=== PATIENT | female | born 1935 | race African-American/Black ===

== ENCOUNTER 2018-07-25 08:41 | Observation (INO) | payer MEDICARE, BC ==
[2018-07-25 14:57] VITALS: BMI 20.4
[2018-07-25] MEDS ORDERED: Acetaminophen 325 MG TAB PO PRN ×2 (16:00→16:35)
[2018-07-25] MEDS ORDERED: hydrALAZINE 20 MG/ML VIAL SLOW IVP PRN (16:35)
[2018-07-25] MEDS ORDERED: Benzonatate 100 MG CAP PO PRN (16:35)
[2018-07-25] MEDS ORDERED: HumaLOG 300 UNITS/3 ML VIAL SC PRN ×2 (16:35)
[2018-07-25] MEDS ORDERED: Dextrose 50% Abboject 50 ML SYRINGE SLOW IVP PRN (16:35)
[2018-07-25] MEDS ORDERED: Dextrose 5% in Water 1,000 ML IV PRN (16:35)
[2018-07-25] MEDS ORDERED: Nitroglycerin 0.4 MG TAB (25 Tab Bottle) SL PRN (16:35)
[2018-07-25] MEDS ORDERED: Sodium Chloride 0.9% 10 ML ONE (16:56)
[2018-07-25] MEDS: cefTRIAXone\\ROCEPHIN 1 GM in Sodium Chloride 0.9% 100 ML IVPB SCH (17:02)
[2018-07-25] MEDS: Azithromycin 500 MG in Sodium Chloride 0.9% 250 ML 250 ML IVPB SCH (17:46)
[2018-07-25] MEDS: Atorvastatin Calcium 10 MG TAB PO SCH (21:08)
[2018-07-25] MEDS: Carvedilol 25 MG TAB PO SCH (21:08)
[2018-07-25] MEDS: Lisinopril 20 MG TAB PO SCH (21:08)
--- NOTE | 2018-07-25 22:43 | HP ---
PRIMARY CARE PHYSICIAN: Dr. Graham. CHIEF COMPLAINT: Palpitations, cough, and congestion. HISTORY OF PRESENT ILLNESS: Ms. Crandall is a very pleasant 83-year-old female who has a history of nonischemic cardiomyopathy, diabetes mellitus, and hypertension. She was in her usual state of health until a couple of days ago when she started getting cough and congestion. She says that overnight it got extremely worse. She says that she was not able to sleep in the bed, but had to sleep in a recliner primarily due to coughing and was up most of the night and when she got up this morning, her heart was pounding and she felt a bit lightheaded. She denies any chest pain, however, and due to the symptoms, she came to the emergency room in [facility], where they evaluated her and noticed that her BNP was a bit elevated and her chest x-ray reportedly had some signs of early congestive heart failure and she was transferred here for further evaluation. The patient says that she sees Dr. Echavarria on a regular basis. She says that he does echoes fairly often. She has a defibrillator in place and had a recent change of battery early last year. She is not sure when her last echo however was. She also denies noticing any lower extremity edema. She denies any PND or amaury orthopnea and says in fact, she thought that she may have a bronchitis as other people have been sick in her family and also in the general area where she lives. Otherwise, no nausea, no vomiting, no fevers, no chills. REVIEW OF SYSTEMS: All systems were reviewed and are negative except for that mentioned in the history of present illness. PAST MEDICAL HISTORY: Significant for nonischemic cardiomyopathy, diabetes mellitus type 2, hypertension, hyperlipidemia, and breast cancer. PAST SURGICAL HISTORY: She had a left mastectomy in 2009, cardiac catheterization, appendectomy. She had an AICD placed in 2010 and then a battery change in 11/23/2017. ALLERGIES: TO TRAMADOL, TYLENOL 3, WHICH CAUSES HER TO BE NAUSEATED WELL METHOCARBAMOL. SOCIAL HISTORY: She is single. She lives with her sister. She is a nonsmoker. She says she used to drink, but she has quit years ago. She would like to be do not attempt resuscitation. She says that her nephews, who are her sister's sons, Gale Pichardo, and Thom Beasley are her surrogate decision makers for her medical conditions. FAMILY HISTORY: Significant for heart disease, diabetes mellitus in her brother and cancer and end-stage renal disease in her sister. CURRENT MEDICATIONS: Include; 1. Spironolactone 12.5 mg daily. 2. Zocor 20 mg at bedtime. 3. Nitrostat 0.4 q.5 minutes p.r.n. 4. Loratadine 10 mg daily. 5. Lisinopril 20 mg twice a day. 6. Fish oil 1000 mg daily. 7. Carvedilol 25 mg twice a day. 8. Aspirin 81 mg daily. PHYSICAL EXAMINATION: GENERAL: She is alert and oriented. She appears to be in no acute distress. VITAL SIGNS: Her vital signs are stable. Blood pressure was 123/72, heart rate 82, respiratory rate of 20, temperature was 98.2, and O2 saturation is 96% on room air. HEENT: Her pupils are equal, round, and reactive. Extraocular muscles are intact. Her sclerae anicteric. Throat, there is no erythema, no exudates. NECK: No adenopathy. No bruits. LUNGS: She has bilateral wheezing, which is worse on the right mid lung field. She had some rales at the bases as well. There was no rhonchi. CARDIOVASCULAR: She had a normal S1 and S2. No S3 or S4. No murmurs, clicks, or rubs. ABDOMEN: Obese. It is soft. It is nontender and nondistended. Positive for bowel sounds. There is no rebound, no guarding. EXTREMITIES: She has trace pedal edema. NEURO: Neurologically, the exam is nonfocal. LABORATORY DATA: Labs were taken from the records from the [facility] and include a sodium of 132, potassium 4.0, chloride is 102, CO2 is 21, BUN of 13, creatinine 1.02, glucose is 207. CBC, the white blood cell count 8.6, hemoglobin 11.8, hematocrit is 34.9, and platelet count is 194. The BNP was 456. D-dimer 0.59. Troponin less than 0.010. DIAGNOSTIC STUDIES: EKG, this is by my reading, was sinus, rate was 74. There is evidence of left axis deviation and some nonspecific ST wave changes. Chest x-ray was reported as having borderline cardiomegaly, defibrillator in place. Leads are in place and borderline signs of failure. ASSESSMENT AND PLAN: This is an 83-year-old female, who presents with cough and palpitations, also with exam with both wheezing and rales. I suspect she has a combination of an acute bronchitis along with some mild decompensation in heart failure. The largest aspect of which I think is likely from acute bronchitis, therefore, for; 1. Acute bronchitis. We will place her on Rocephin as well as azithromycin and DuoNebs as needed. 2. [id number] systolic heart failure. She has already been given a dose of Lasix in the ER. We may give her another dose of Lasix today. Consult Cardiology for further recommendations. We will continue her usual home medications for this. We will hold off on an echocardiogram given that she sees Dr. Echavarria, regularly and likely this has been done in the recent past. 3. Diabetes mellitus. She says this is currently diet controlled. We will place her on a sliding scale. 4. Hypertension. Currently, her blood pressure is controlled. We will continue her usual home medications as well as p.r.n., as needed. Job ID: [id number]
[2018-07-26 06:15] LABS: #Lymphocytes 0.8 thou/uL (1.20-3.40); #Monocytes 0.5 thou/uL (0.11-0.59); #Neutrophils 6.2 thou/uL (1.40-6.50); %Eosinophils 0.1 % (0.0-10.0); %Lymphocytes 11.1 % (21.0-51.0); %Monocytes 5.9 % (0.0-10.0); %Neutrophils 82.8 % (42.0-75.0); Hemoglobin 11.7 g/dL (12.0-16.0); Mean Corpuscular HGB CONC 33.9 g/dL (32.0-36.0); Mean Corpuscular Hemoglobin 31.6 pg (27.0-31.0); Mean Corpuscular Volume 93.2 fL (78.0-98.0); Mean Platelet Volume 7.8 fL (7.4-10.4); Platelet Count 167 thou/uL (130-400); RBC Distribution Width 10.9 % (11.5-14.5); Red Blood Cell (RBC) Count 3.69 mill/uL (4.20-5.40); White Blood Cell (WBC) Count 7.5 thou/uL (4.8-10.8)
[2018-07-26 06:34] LABS: Anion Gap 13 mmol/L (10-20); BUN (Urea Nitrogen) 20 mg/dL (9.8-20.1); Calc. Creatinine Clearance 35 mL/min (70-130); Calcium 9.2 mg/dL (7.8-10.44); Carbon Dioxide 26 mmol/L (23-31); Chloride 98 mmol/L (98-107); Estimated GFR-MDRD 56; Glucose 155 mg/dL (83-110); Potassium 3.8 mmol/L (3.5-5.1); Sodium 133 mmol/L (136-145)
[2018-07-26] MEDS: Enoxaparin Sodium 40 MG/0.4 ML SYRINGE SC SCH (09:15)
[2018-07-26] MEDS: Carvedilol 25 MG TAB PO SCH ×2 (09:15→20:49)
[2018-07-26] MEDS: Fish Oil 1,000 MG CAP PO SCH (09:15)
[2018-07-26] MEDS: Loratadine 10 MG TAB PO SCH (09:15)
[2018-07-26] MEDS: Spironolactone 25 MG TAB PO SCH (09:15)
[2018-07-26] MEDS: Lisinopril 20 MG TAB PO SCH ×2 (09:15→20:49)
[2018-07-26] MEDS: Aspirin 81 mg Enteric Coated Tablet PO SCH (09:15)
--- NOTE | 2018-07-26 16:37 | PDOC.PN ---
- Subjective Encounter Start Date: 07/26/18 Encounter Start Time: 16:36 Mr. Crandall was seen today in follow-up of bronchitis. She says she is breathing better today. She is still wheezing, and has a cough. - Objective Resuscitation Status - Order Detail: 07/25/18 16:28 Resuscitation Status Routine Resuscitation Status: DNAR: NO Resuscitation Discussed with: Discussed with the patient MAR Reviewed: Yes Vital Signs & Weight: Vital Signs (12 hours) Temp Pulse Resp BP BP Pulse Ox 07/26/18 12:00 99.2 F 80 18 92/54 L 93 L 07/26/18 11:44 85 16 98 07/26/18 09:15 110/56 L 07/26/18 08:20 98.1 F 93 18 110/56 L 95 07/26/18 07:09 99 07/26/18 07:08 89 14 99 Weight Admit Weight 126 lb 6.4 oz Weight 126 lb 6.4 oz I&O: 07/25/18 07/26/18 07/27/18 06:59 06:59 06:59 Intake Total 351 Balance 351 Result Diagrams: 07/26/18 05:32 07/26/18 05:32 Additional Labs: Accuchecks 07/26/18 07/26/18 11:06 05:56 POC Glucose 193 H 159 H Phys Exam - Physical Examination + wheezing bilaterally Cardiovascular: RRR, no significant murmur, no rub Gastrointestinal: soft, non-tender, no distention, positive bowel sounds Musculoskeletal: pulses present, edema present trace pedal edema bilaterally Dx/Plan (1) Acute bronchitis Code(s): J20.9 - ACUTE BRONCHITIS, UNSPECIFIED Status: Acute (2) Chronic systolic heart failure Code(s): I50.22 - CHRONIC SYSTOLIC (CONGESTIVE) HEART FAILURE Status: Acute (3) Diabetes mellitus type 2 in nonobese Code(s): E11.9 - TYPE 2 DIABETES MELLITUS WITHOUT COMPLICATIONS Status: Chronic (4) Hypertension Code(s): I10 - ESSENTIAL (PRIMARY) HYPERTENSION Status: Chronic - Plan * Acute Bronchitis- slightly improved- continue AZithromycin and Rocephin, and Duonebs * Acute on chronic diastolic heart failure- Echo has been ordered. She appears to be clinically euvolemic- await further recommendations from Cardiology * HTN- blood pressure is low normal * DM- blood glucose is stable * Hopefully home tomorrow.
[2018-07-26] MEDS: cefTRIAXone\\ROCEPHIN 1 GM in Sodium Chloride 0.9% 100 ML IVPB SCH (17:06)
[2018-07-26] MEDS: Azithromycin 500 MG in Sodium Chloride 0.9% 250 ML 250 ML IVPB SCH (18:12)
[2018-07-26] MEDS: Atorvastatin Calcium 10 MG TAB PO SCH (20:49)
--- NOTE | 2018-07-26 22:37 | CON ---
DATE OF CONSULTATION: PRIMARY CARE DOCTOR: Dr. Graham. PRIMARY ENAMEL DIPPER: Dr. Echavarria. REFERRING DOCTOR: Dr. Baker. REASON FOR CARDIOLOGY CONSULT: Congestive heart failure exacerbation. HISTORY OF PRESENT ILLNESS: Ms. Crandall is a very pleasant 83-year-old female with a significant history of nonischemic cardiomyopathy with AICD placement, hypertension, diabetes, hyperlipidemia, and left breast cancer with status post mastectomy. The patient started having worsen of the cough for the last few days. Yesterday, she noticed cough is getting worse and she is having more congested. The patient was taken to the emergency department by the patient's family member for further evaluation and treatment. In the ER at [place], the patient's chest x-ray shows some sign of early congestive heart failure. The patient was transferred to [facility] yesterday. Prior to these events, the patient denied any cardiac complaints except congestion in her chest. During the Cardiology consult, the patient denied any chest pain, heaviness, tightness, discomfort in her chest, fluttering or palpitation, dizziness, lightheadedness, or any other cardiac complaints. She has walked around the unit today without any cardiac complaints. The patient has cardiac catheterization in 08/2009 with 20% of stenosis in left circumflex arteries and right coronary arteries. The last echocardiogram was done in 01/2017 with EF 20% to 25%, moderate left ventricular dilation, mild left atrial enlargement, [id number] mitral valve regurgitation, and mild tricuspid regurgitation. PAST MEDICAL HISTORY: 1. Known ischemic cardiomyopathy. 2. Chronic systolic heart failure. 3. Hypertension. 4. Hyperlipidemia. 5. Left breast cancer. 6. History of diabetes type 2; however, after she lost weight, she is off any blood glucose medication. PAST SURGICAL HISTORY: 1. Left mastectomy in 2009. 2. Appendectomy. 3. AICD placement in 2010 and a generator change out in 2017. FAMILY HISTORY: She has significant family history of hypertension in her family. The patient's older brother has history of diabetes. SOCIAL HISTORY: She is single. She is living with her sister. She denies smoking any tobacco, EtOH, or illicit drug abuse. She drinks one cup of coffee a day and she drinks one can of Coke a day. She does not do any exercise. ALLERGIES: SHE IS ALLERGIC TO TRAMADOL AND TYLENOL NO.3. REVIEW OF SYSTEM: Twelve-point review of systems is negative unless otherwise mentioned in HPI. CURRENT MEDICATIONS: 1. Fish oil 1000 mg once a day. 2. Claritin 10 mg once a day. 3. Aspirin 81 mg once a day. 4. Spironolactone 25 mg half tablet to one tablet a day. 5. Zocor 20 mg once a day. 6. Nitroglycerin 0.4 mg sublingual as needed. 7. Lisinopril 20 mg twice a day. 8. Carvedilol 25 mg twice a day. PHYSICAL EXAMINATION: VITAL SIGNS: Blood pressure 92/54, pulse 86 and sinus rhythm, temperature 99.2, respiratory rate 18, and O2 saturation 98% on room air. GENERAL: The patient alert and oriented x4, not in acute distress. HEENT: Head, normocephalic and atraumatic. Eyes, extraocular muscle movement intact. ENT and mouth, oral and nasal mucosa are moist without lesion. NECK: Supple. Normal range of motion. No JVD. RESPIRATORY: Coarse in bilateral lungs, but no wheezing noted. CARDIOVASCULAR: Regular rate and rhythm. Normal S1 and S2. There is no S3 or S4. There are significant murmur to the left apical site. Carotid pulses are present. No bruit or thrill noted. 2+ pulses in upper and lower extremities. No edema. ABDOMEN: Soft and nontender on the mass to palpate. Bowel sounds are present. SKIN: Warm and dry. No lesions, erythema, or rash noted. MUSCULOSKELETAL: The patient is able to move all extremities without any difficulties. NEUROLOGIC: The patient is alert and oriented x4, nonfocal. PSYCHIATRIC: The patient's mood is appropriate. LABORATORY DATA: WBC 7.5, hemoglobin 11.7, hematocrit 30.14, and platelet 167. BNP is 456. Sodium 133, potassium 3.8, BUN 20, creatinine 1.12, and glucose 155. Telemetry records showed that the patient is in sinus rhythm. ASSESSMENT AND PLAN: 1. Acute on chronic systolic heart failure. Her condition is stable at this moment with room air after she received the Lasix in the ER. The patient on carvedilol 25 mg twice a day, lisinopril, and also spironolactone. Echocardiogram was ordered and the result is pending at this moment. 2. Acute bronchitis which is managed by primary care doctor. She is on IV antibiotic at this moment with Davidb as needed. 3. Hypertension. The patient's blood pressure is stable with current medication. 4. Diabetes type 2. The patient on before meals and at night blood glucose check with sliding scale insulin. 5. History of moderate and severe mitral valve regurgitation. Echocardiogram was ordered and again results are pending at this moment. Thank you for allowing the Cardiology Service to participate in the care of this patient. We will follow along the patient's care team and make further recommendation as appropriate. Job ID: [id number]
--- NOTE | 2018-07-27 00:37 | CON ---
DATE OF CONSULTATION: 07/26/2018 INDICATION FOR CONSULTATION: An 83-year-old female with history of nonischemic cardiomyopathy, who has had an increasing cough recently. She denied any significant increased shortness of breath, but does appear to be slightly short of breath at times during the evaluation. The patient mainly complained of a cough and feeling lightheaded. She went to the emergency room. Chest x-ray showed some congestion, I believe she had some small bilateral effusions. She was then transferred to our facility for further evaluation and treatment. She had an echocardiogram I believe in 2017, which was her last echocardiogram. We will repeat this to see whether or not her ejection fraction has improved. She also has a defibrillator. She has been followed on a routine basis with defibrillator which was changed out last year, and apparently has been doing quite well. She denied any other complaints or problems. She mainly was complaining of some mild edema as well as the coughing, and was told that she had congestive heart failure and presented to the hospital. PAST MEDICAL HISTORY: Significant for the AICD implant, nonischemic cardiomyopathy, history of hypertension, hyperlipidemia, diabetes. She has had a history of breast cancer in the past. She has had a mastectomy. She has had change out of the AICD in 2018. Otherwise, for her past medical history, social history,family history, allergies, review of systems, please refer the notes dictated by my nurse practitioner, Jelena Herrera. PHYSICAL EXAMINATION: GENERAL: Reveals an elderly female, very pleasant. There were no acute problems at this time. VITAL SIGNS: Blood pressure 92/54, heart rate is 80 and shows a sinus rhythm, respiratory rate 16, O2 saturation 93%, temperature is 99.2. HEENT: Shows head to be normocephalic and atraumatic. Carotid pulses are present without any bruits. CHEST: Has bilateral basilar rales. She has coarse rhonchi noted in the right and left base, more so on the left than the right. CARDIOVASCULAR: Reveals a regular rhythm at this time. She has an S1 and S2. I did not hear any significant S3 or S4. I did not hear any significant murmurs, heaves, thrills, bruits or rubs. ABDOMEN: Soft, nontender. Positive bowel sounds are present. EXTREMITIES: No clubbing or cyanosis. She had minimal edema. NEUROLOGIC: She appears to be intact. LABORATORY DATA: Shows evidence of blood sugar of 155, creatinine 1.12, sodium 133, potassium 3.8. WBC 7.5, hemoglobin 11.7. There were no other labs available unless that were from the emergency room in [place]. I do not think there are any other significant abnormalities noted at this time. IMPRESSION: Probably bronchitis with some congestive heart failure symptoms superimposed. She is on antibiotics. We will continue these antibiotics. Would also give her a low dose of diuretics to see if she improves, careful attention to her sodium. Her sodium was 132 when she was evaluated in [place]. Her troponin I was unremarkable. We will continue to follow the patient with you, but most likely be discharged home in the next 24 to 48 hours. We will obtain an echocardiogram for evaluation of left ventricular systolic function. Job ID: [id number] [facility]
[2018-07-27] MEDS: Lisinopril 20 MG TAB PO SCH (08:43)
[2018-07-27] MEDS: Spironolactone 25 MG TAB PO SCH (08:43)
[2018-07-27] MEDS: Carvedilol 25 MG TAB PO SCH (08:43)
[2018-07-27] MEDS: Enoxaparin Sodium 40 MG/0.4 ML SYRINGE SC SCH (08:43)
[2018-07-27] MEDS: Fish Oil 1,000 MG CAP PO SCH (08:43)
[2018-07-27] MEDS: Aspirin 81 mg Enteric Coated Tablet PO SCH (08:43)
[2018-07-27] MEDS: Loratadine 10 MG TAB PO SCH (08:43)
[2018-07-27 11:01] LABS: Anion Gap 13 mmol/L (10-20); BUN (Urea Nitrogen) 31 mg/dL (9.8-20.1); Calc. Creatinine Clearance 30 mL/min (70-130); Calcium 8.8 mg/dL (7.8-10.44); Carbon Dioxide 24 mmol/L (23-31); Chloride 99 mmol/L (98-107); Estimated GFR-MDRD 47; Glucose 186 mg/dL (83-110); Potassium 3.3 mmol/L (3.5-5.1); Sodium 133 mmol/L (136-145)
--- NOTE | 2018-07-27 12:24 | PDOC.PN ---
- Subjective Encounter Start Date: 07/27/18 Encounter Start Time: 12:22 Ms. Crandall was seen today in follow-up of bronchitis and CHF. She is a bit better today as well, she is less short of breath. She says the cough has improved. - Objective Resuscitation Status - Order Detail: 07/25/18 16:28 Resuscitation Status Routine Resuscitation Status: DNAR: NO Resuscitation Discussed with: Discussed with the patient MAR Reviewed: Yes Vital Signs & Weight: Vital Signs (12 hours) Temp Pulse Resp BP BP Pulse Ox 07/27/18 08:43 124/60 07/27/18 08:30 98.1 F 82 16 124/60 96 07/27/18 06:21 93 L 07/27/18 06:18 83 20 93 L 07/27/18 04:00 98.1 F 83 14 119/63 96 Weight Admit Weight 126 lb 6.4 oz Weight 126 lb 6.4 oz I&O: 07/26/18 07/27/18 07/28/18 06:59 06:59 06:59 Intake Total 351 240 Balance 351 240 Result Diagrams: 07/26/18 05:32 07/27/18 10:29 Additional Labs: Accuchecks 07/27/18 07/27/18 07/26/18 11:37 05:42 21:01 POC Glucose 179 H 108 243 H 07/26/18 16:54 POC Glucose 145 H Phys Exam - Physical Examination HEENT: PERRLA Respiratory: no rales, no rhonchi, wheezing present Cardiovascular: RRR, no significant murmur, no rub Gastrointestinal: soft, non-tender, no distention, positive bowel sounds Musculoskeletal: no edema, pulses present Dx/Plan (1) Acute bronchitis Code(s): J20.9 - ACUTE BRONCHITIS, UNSPECIFIED Status: Acute (2) Chronic systolic heart failure Code(s): I50.22 - CHRONIC SYSTOLIC (CONGESTIVE) HEART FAILURE Status: Acute (3) Diabetes mellitus type 2 in nonobese Code(s): E11.9 - TYPE 2 DIABETES MELLITUS WITHOUT COMPLICATIONS Status: Chronic (4) Hypertension Code(s): I10 - ESSENTIAL (PRIMARY) HYPERTENSION Status: Chronic - Plan * Acute Bronchitis- improved * Acute on chronic systolic heart failure- improved clinically after Lasix * HTN- blood pressure is stable * DM- blood glucose is stable.
[2018-07-27 15:59] VITALS: BP 127/62; TEMP 98
[2018-07-27] MEDS: cefTRIAXone\\ROCEPHIN 1 GM in Sodium Chloride 0.9% 100 ML IVPB SCH (16:10)
[2018-07-27] MEDS: Azithromycin 500 MG in Sodium Chloride 0.9% 250 ML 250 ML IVPB SCH (18:10)
--- NOTE | 2018-07-27 18:23 | PDOC.CTH ---
Cardiology Progress Note - Subjective The pt seen and examined. No overnight events. No cardiac complaints. She has much less coughing today per the pt and family. - Objective Vital Signs Temp Pulse Resp BP BP Pulse Ox 07/27/18 15:58 98.0 F 80 16 127/62 95 07/27/18 13:49 80 24 H 07/27/18 08:43 124/60 07/27/18 08:30 98.1 F 82 16 124/60 96 Admit Weight 126 lb 6.4 oz Weight 126 lb 6.4 oz 07/26/18 07/27/18 07/28/18 06:59 06:59 06:59 Intake Total 351 240 Balance 351 240 - Physical Examination General/Neuro: alert & oriented x3 Neck: no JVD present Lungs: CTA (diminished at bases) Heart: RRR Abdomen: soft Extremities: other: (No edema) - Telemetry Telemetry Rhythm: SR - Labs Result Diagrams: 07/26/18 05:32 07/27/18 10:29 - Assessment/Plan 1. Acute on chronic systolic HF - stable and slightly improved. 2. Acute bronchitis - less cough; on IV abx 3. HTN - stable 4. Hx of AICD placement 2/2 non-ischemic CMY - stable MAR reviewed * Echo on 07/27/2018 showed EF 25-30%(20-25% in 01/2017) with mild MR (mod- severe MR in 01/2017) * From Cardiac standpoint, the pt is stable to d/c home. The pt will f/u with Dr Echavarria's office within 2 wks. Review of Systems - Review of Systems Constitutional: reports: no symptoms reported EENTM: reports: no symptoms reported Respiratory: reports: no symptoms reported Cardiac (ROS): reports: no symptoms reported ABD/GI: reports: no symptoms reported : reports: no symptoms reported Musculoskeletal: reports: no symptoms reported
--- NOTE | 2018-07-29 13:48 | DIS ---
DATE OF ADMISSION: 07/25/2018 DATE OF DISCHARGE: 07/27/2018 PRIMARY CARE PHYSICIAN: Dr. Graham. DISCHARGE DISPOSITION: Home. PRIMARY DISCHARGE DIAGNOSES: 1. Acute bronchitis. 2. Acute on chronic systolic heart failure. 3. Nonischemic cardiomyopathy. 4. Diabetes mellitus type 2. 5. Hypertension. 6. Dyslipidemia. 7. Breast cancer. DISCHARGE MEDICATIONS: Include; 1. Spironolactone 12.5 mg daily. 2. Zocor 20 mg at bedtime. 3. Nitrostat 0.4 sublingual p.r.n. 4. Claritin 10 mg daily. 5. Lisinopril 20 mg twice a day. 6. Fish oil 1000 mg daily. 7. Carvedilol 25 mg twice daily. 8. Aspirin 81 mg a day. PROCEDURES DONE: During the admission, the patient had an echocardiogram which demonstrated an ejection fraction of 25% to 30%. There was normal right ventricular size and function. The pacer wires were visualized in the right ventricle as well as AICD leads were visualized in the right atrial cavity. CODE STATUS: Do not resuscitate. ALLERGIES: 1. CODEINE. 2. METHOCARBAMOL. 3. TRAMADOL. HOSPITAL COURSE: Ms. Crandall is a pleasant 83-year-old female, who was admitted to the hospital after experiencing some shortness of breath, coughing, and congestion. She had wheezing bilaterally and chest x-ray was essentially clear. She was admitted for a bronchitis episode and likely some mild heart failure and volume overload as well. She was placed on IV antibiotics and DuoNebs as well as given IV Lasix. Her spinning frame changer was consulted as well. Echocardiogram was performed. She improved over the next few days with therapy and was able to be discharged home essentially on the same medications and she is to have follow up with her primary care physician in 1 to 2 weeks and also with her spinning frame changer, Dr. Echavarria, in approximately 2 weeks as well. Job ID: [id number]
== END 2018-07-27 20:10 | disposition home or self-care (01) ==
LOC: 2NO 12:59 → INTOOBSV 12:59
PROVIDERS: ADMIT Internal Medicine; ATTEND Internal Medicine
DX: J20.9 Acute bronchitis, unspecified (principal); I11.0 Hypertensive heart disease with heart failure; I50.23 Acute on chronic systolic (congestive) heart failure; I42.0 Dilated cardiomyopathy; I34.0 Nonrheumatic mitral (valve) insufficiency; E11.9 Type 2 diabetes mellitus without complications; E78.5 Hyperlipidemia, unspecified; E66.9 Obesity, unspecified; Z68.20 Body mass index [BMI] 20.0-20.9, adult; Z85.3 Personal history of malignant neoplasm of breast; Z90.12 Acquired absence of left breast and nipple; Z90.49 Acquired absence of other specified parts of digestive tract; Z95.810 Presence of automatic (implantable) cardiac defibrillator; Z88.5 Allergy status to narcotic agent; Z88.8 Allergy status to other drugs, medicaments and biological substances; Z79.82 Long term (current) use of aspirin; Z79.899 Other long term (current) drug therapy
CPT/HCPCS: 80048 ×2; 82962 ×2; 85025; 93306; 94640 ×3; 94760 ×3; 96365; 96366 ×2; 96367; 96372 ×2; 96376 ×2; 97139 ×2; G0378 ×4; 36415; 36416; J0456; J0696; J1650; J7050; J7620

== ENCOUNTER 2019-04-28 13:38 | Inpatient (IN) | payer MEDICARE, BC ==
[2019-04-28] MEDS: Ferrous Sulfate 325 MG TAB PO SCH (17:02)
[2019-04-28] MEDS: Sotalol HCl 80 MG TAB PO SCH (17:24)
[2019-04-28] MEDS: Apixaban 2.5 MG TAB PO SCH (21:31)
[2019-04-28] MEDS: Carvedilol 6.25 MG TAB PO SCH (21:31)
[2019-04-28] MEDS: Atorvastatin Calcium 10 MG TAB PO SCH (21:32)
[2019-04-29] MEDS: Sotalol HCl 80 MG TAB PO SCH ×2 (06:00→20:21)
[2019-04-29] MEDS: Apixaban 2.5 MG TAB PO SCH ×2 (09:36→20:21)
[2019-04-29] MEDS: Lisinopril 20 MG TAB PO SCH (09:36)
[2019-04-29] MEDS: Carvedilol 6.25 MG TAB PO SCH ×2 (09:36→20:21)
[2019-04-29] MEDS: Spironolactone 25 MG TAB PO SCH (09:37)
[2019-04-29] MEDS: Loratadine 10 MG TAB PO SCH (09:37)
--- NOTE | 2019-04-29 11:05 | PDOC.CPN ---
- Subjective Date: 04/29/19 Time: 08:00 Interval history: admitted for sotalol loading. Feels well. No concerns or complaints overnight. - Review of Systems General: denies: fever/chills, weight/appetite/sleep changes, night sweats, fatigue Respiratory: denies: cough, congestion, shortness of breath, exercise intolerance Cardiovascular: denies: chest pain, palpitation, edema, paroxysmal nocturnal dyspnea, orthopnea Gastrointestinal: denies: nausea, vomiting, diarrhea, constipation, abd pain, GI bleeding Musculoskeletal: denies: pain, tenderness, stiffness, swelling, arthritis/ arthralgias - Objective Allergies/Adverse Reactions: Allergies Allergy/AdvReac Type Severity Reaction Status Date / Time codeine Allergy Verified 07/25/18 16:05 [From Tylenol-Codeine #3] methocarbamol Allergy Verified 07/25/18 16:05 tramadol Allergy Verified 07/25/18 16:05 Visit Medications: Current Medications Apixaban (Eliquis) 2.5 mg PO BID [facility] Last Admin: 04/29/19 09:36 Dose: 2.5 mg Atorvastatin Calcium (Lipitor) 10 mg PO HS [facility] Last Admin: 04/28/19 21:32 Dose: 10 mg Carvedilol (Coreg) 6.25 mg PO BID [facility] Last Admin: 04/29/19 09:36 Dose: 6.25 mg Ferrous Sulfate (Feosol) 325 mg PO QD [facility] Last Admin: 04/28/19 17:02 Dose: Not Given Lisinopril (Zestril) 20 mg PO DAILY [facility] Last Admin: 04/29/19 09:36 Dose: 20 mg Loratadine (Claritin) 10 mg PO DAILY [facility] Last Admin: 04/29/19 09:37 Dose: 10 mg Sotalol HCl (Betapace) 80 mg PO Q12HR [facility] Spironolactone (Aldactone) 12.5 mg PO QAM[facility] Last Admin: 04/29/19 09:37 Dose: 12.5 mg Vital Signs & Weight: Vital Signs Temp Pulse Resp BP BP Pulse Ox 04/29/19 09:36 120/58 L 04/29/19 08:16 97.9 F 62 16 120/58 L 99 04/29/19 08:00 99 04/29/19 06:00 71 111/60 04/29/19 03:25 97.7 F 64 14 120/60 98 Weight 134 lb 1.6 oz - Physical Exam General: alert & oriented x3 Cardiac: regular rate and rhythm, regular rate Lungs: clear to auscultation, normal breath sounds Neuro: grossly intact, no lateralizing findings Abdomen: unremarkable, active bowel sounds Extremities: no edema Skin: clear - EKG Interpretation Status: report reviewed by me EKG Method: 12 Lead EKG: other (SR, QT prolongation ~500msec (50msec increase from admission)) - Telemetry Sinus rhythms and dysrhythmias: sinus rhythm - Assessment/Plan Assessment/Plan: 1. Atrial fibrillation -QTc prolongation on sotalol 120mg PO BID. reducing dose to 80mg PO BID. Continue EKG 2-3 hrs post every dose of sotalol. - COntinue eliquis for OAC
[2019-04-29 12:26] VITALS: BMI 21.6
[2019-04-29] MEDS: Ferrous Sulfate 325 MG TAB PO SCH (15:11)
[2019-04-29] MEDS: Atorvastatin Calcium 10 MG TAB PO SCH (20:22)
[2019-04-30] MEDS: Sotalol HCl 80 MG TAB PO SCH (09:00)
[2019-04-30] MEDS: Carvedilol 6.25 MG TAB PO SCH (09:01)
[2019-04-30] MEDS: Apixaban 2.5 MG TAB PO SCH (09:01)
[2019-04-30] MEDS: Loratadine 10 MG TAB PO SCH (09:01)
[2019-04-30] MEDS: Spironolactone 25 MG TAB PO SCH (09:01)
[2019-04-30] MEDS: Lisinopril 20 MG TAB PO SCH (09:02)
--- NOTE | 2019-04-30 13:43 | PDOC.CPN ---
- Subjective Date: 04/30/19 Time: 10:00 Interval history: feels well. no complaints. continuing with sotalol loading. - Review of Systems General: denies: fever/chills, weight/appetite/sleep changes, night sweats, fatigue Respiratory: denies: cough, congestion, shortness of breath, exercise intolerance Cardiovascular: denies: chest pain, palpitation, edema, paroxysmal nocturnal dyspnea, orthopnea Gastrointestinal: denies: nausea, vomiting, diarrhea, constipation, abd pain, GI bleeding Musculoskeletal: denies: pain, tenderness, stiffness, swelling, arthritis/ arthralgias Neurological: denies: numbness, syncope, seizure, weakness - Objective Allergies/Adverse Reactions: Allergies Allergy/AdvReac Type Severity Reaction Status Date / Time codeine Allergy Verified 07/25/18 16:05 [From Tylenol-Codeine #3] methocarbamol Allergy Verified 07/25/18 16:05 tramadol Allergy Verified 07/25/18 16:05 Visit Medications: Current Medications Apixaban (Eliquis) 2.5 mg PO BID [facility] Last Admin: 04/30/19 09:01 Dose: 2.5 mg Atorvastatin Calcium (Lipitor) 10 mg PO HS [facility] Last Admin: 04/29/19 20:22 Dose: 10 mg Carvedilol (Coreg) 6.25 mg PO BID [facility] Last Admin: 04/30/19 09:01 Dose: 6.25 mg Ferrous Sulfate (Feosol) 325 mg PO QD [facility] Last Admin: 04/29/19 15:11 Dose: Not Given Lisinopril (Zestril) 20 mg PO DAILY [facility] Last Admin: 04/30/19 09:02 Dose: 20 mg Loratadine (Claritin) 10 mg PO DAILY [facility] Last Admin: 04/30/19 09:01 Dose: 10 mg Sotalol HCl (Betapace) 80 mg PO Q12HR [facility] Last Admin: 04/30/19 09:00 Dose: 80 mg Spironolactone (Aldactone) 12.5 mg PO QAM[facility] Last Admin: 04/30/19 09:01 Dose: 12.5 mg Vital Signs & Weight: Vital Signs Temp Pulse Resp BP Pulse Ox 04/30/19 08:31 98.3 F 61 18 111/55 L 97 04/30/19 04:00 98.1 F 60 18 126/63 98 Admit Weight 138 lb 6 oz Weight 134 lb 1.6 oz - Physical Exam General: alert & oriented x3, appears well, no apparent distress HEENT: mucus membranes moist Neck: supple neck, no JVD/HJR Cardiac: regular rate and rhythm, no murmur, regular rate, regular rhythm Lungs: clear to auscultation, normal breath sounds Neuro: grossly intact - Assessment/Plan Assessment/Plan: 1. Atrial fibrillation -QTc prolongation on sotalol 120mg PO BID. reduced dose to 80mg PO BID and QT /QTc stabilized at ~450msec. - Continue EKG 2-3 hrs post every dose of sotalol. - Continue eliquis for OAC 2. Dual PPM -normal operation. -AP, VS rhythm
[2019-04-30 16:04] VITALS: TEMP 98.4
--- NOTE | 2019-04-30 16:16 | DIS ---
DATE OF ADMISSION: 04/28/2019 DATE OF DISCHARGE: 04/30/2019 REASON FOR ADMISSION: Diagnosis of atrial fibrillation and need for sotalol loading. CONDITION AT DISCHARGE: Stable. HISTORY OF PRESENT ILLNESS: Ms. Crandall is an 84-year-old woman, known to our practice for history of paroxysmal atrial fibrillation in addition to chronic systolic heart failure, inclusion of a dual-chamber ICD. She was having more persisting atrial fibrillation episodes, where she was symptomatic with dizziness and fatigue and required antiarrhythmic therapy for suppressing her atrial fibrillation. She was admitted to [facility] on the for sotalol loading with 120 mg b.i.d., which resulted in QT prolongation of approximately 500 milliseconds, prompting a dose reduction to 80 mg b.i.d., which she has been tolerating well and her QT/QTc have stabilized at that dose. Her QTc today is approximately 450 milliseconds, which has minimally changed since admission. She also has a defibrillator in place to protect her from any potential ventricular arrhythmias as she continues to take sotalol. She remained in sinus rhythm, A-paced, V-sensed during her hospital stay. Her blood pressures have been stable on the lower dose of Coreg and she is ready for discharge home today. SUBJECTIVE: Ms. Crandall does not have any cardiac concerns or complaints today. She feels well and is eager to get home. REVIEW OF SYSTEMS: Eight-point review of systems is negative. OBJECTIVE: VITAL SIGNS: Stable. A-sensed V-paced rhythm in the 70s. Blood pressures have been stable on the lower dose of Coreg. She remains on room oxygen. She is afebrile. GENERAL: She is alert and oriented. Speech is clear. Affect is appropriate. LUNGS: Clear to auscultation. HEART: Rate is EXTREMITIES: Warm, dry, well perfused without edema. Her gait is stable. NEUROLOGIC: Nonfocal. DISCHARGE MEDICATIONS: We will continue her home medications of; 1. Lisinopril daily. 2. Simvastatin 20 mg daily. 3. Spironolactone 12.5 mg daily. 4. Claritin 10 mg daily. 5. Ferrous sulfate daily. 6. Nitroglycerin sublingual as needed. 7. Eliquis 2.5 mg p.o. b.i.d. New prescriptions sent to her pharmacy include; 1. Sotalol 80 mg p.o. b.i.d. 2. Carvedilol 6.25 mg p.o. b.i.d. DISCONTINUED MEDICATIONS: Carvedilol 25 mg b.i.d. DISCHARGE INSTRUCTIONS: New prescriptions for sotalol and Coreg have been sent to her home pharmacy in [place]. She will be discharge and has a followup appointment scheduled with Dimit[facility] office in 6 weeks. She will contact our clinic sooner with any additional questions or concerns in the interim. She will be discharged later today when her family is available to transport her home. Job ID: [id number]
[2019-04-30] MEDS: Ferrous Sulfate 325 MG TAB PO SCH (16:55)
[2019-04-30 18:32] VITALS: BP 128/68
--- NOTE | 2019-05-01 23:02 | EKG ---
Test Reason : Blood Pressure : / mmHG Vent. Rate : 066 BPM Atrial Rate : 066 BPM P-R Int : 190 ms QRS Dur : 130 ms QT Int : 428 ms P-R-T Axes : 056 -52 032 degrees QTc Int : 448 ms Normal sinus rhythm Left axis deviation Left bundle branch block Abnormal ECG When compared with ECG of 16-NOV-2010 09:20, Left bundle branch block is now Present Confirmed by Erlin PLATA ([id number]) on 05/01/2019 11:01:58 PM Referred By: [facility] Confirmed By:Erlin PLATA
--- NOTE | 2019-05-01 23:04 | EKG ---
Test Reason : Blood Pressure : / mmHG Vent. Rate : 061 BPM Atrial Rate : 061 BPM P-R Int : 114 ms QRS Dur : 130 ms QT Int : 502 ms P-R-T Axes : -01 -56 -07 degrees QTc Int : 505 ms Electronic atrial pacemaker Left axis deviation Left bundle branch block Abnormal ECG When compared with ECG of 28-APR-2019 15:47, (Unconfirmed) Electronic atrial pacemaker has replaced Sinus rhythm QT has lengthened Confirmed by Erlin PLATA ([id number]) on 05/01/2019 11:03:37 PM Referred By: Confirmed By:Erlin PLATA
--- NOTE | 2019-05-01 23:07 | EKG ---
Test Reason : Blood Pressure : / mmHG Vent. Rate : 060 BPM Atrial Rate : 060 BPM P-R Int : 000 ms QRS Dur : 128 ms QT Int : 502 ms P-R-T Axes : 000 -62 -53 degrees QTc Int : 502 ms Atrial-paced rhythm with prolonged AV conduction Left axis deviation Left bundle branch block Abnormal ECG When compared with ECG of 28-APR-2019 15:47, (Unconfirmed) Electronic atrial pacemaker has replaced Sinus rhythm ST more depressed in Inferior leads T wave inversion now evident in Inferior leads T wave inversion now evident in Anterior leads QT has lengthened Confirmed by Erlin PLATA ([id number]) on 05/01/2019 11:07:10 PM Referred By: [facility] Confirmed By:Erlin PLATA
--- NOTE | 2019-05-01 23:09 | EKG ---
Test Reason : Blood Pressure : / mmHG Vent. Rate : 060 BPM Atrial Rate : 060 BPM P-R Int : 000 ms QRS Dur : 130 ms QT Int : 484 ms P-R-T Axes : 000 -60 -57 degrees QTc Int : 484 ms Atrial-paced rhythm with prolonged AV conduction Left axis deviation Left bundle branch block Abnormal ECG When compared with ECG of 29-APR-2019 08:18, (Unconfirmed) No significant change was found Confirmed by Erlin PLATA ([id number]) on 05/01/2019 11:08:53 PM Referred By: [facility] Confirmed By:Erlin PLATA
--- NOTE | 2019-05-01 23:17 | EKG ---
Test Reason : SOTALOL Blood Pressure : / mmHG Vent. Rate : 063 BPM Atrial Rate : 064 BPM P-R Int : 000 ms QRS Dur : 138 ms QT Int : 480 ms P-R-T Axes : 000 -55 -03 degrees QTc Int : 491 ms Electronic atrial pacemaker Left axis deviation Non-specific intra-ventricular conduction block Abnormal ECG When compared with ECG of 29-APR-2019 11:17, (Unconfirmed) T wave inversion less evident in Inferior leads T wave inversion no longer evident in Anterior leads Confirmed by Erlin PLATA ([id number]) on 05/01/2019 11:16:39 PM Referred By: Confirmed By:Erlin PLATA
--- NOTE | 2019-05-01 23:23 | EKG ---
Test Reason : 2 HR POST MED Blood Pressure : / mmHG Vent. Rate : 070 BPM Atrial Rate : 070 BPM P-R Int : 188 ms QRS Dur : 128 ms QT Int : 476 ms P-R-T Axes : 119 -58 -57 degrees QTc Int : 514 ms Electronic atrial pacemaker Left axis deviation Non-specific intra-ventricular conduction block T wave abnormality, consider inferior ischemia Abnormal ECG When compared with ECG of 29-APR-2019 11:17, (Unconfirmed) T wave inversion no longer evident in Anterior leads Confirmed by Erlin PLATA ([id number]) on 05/01/2019 11:23:01 PM Referred By: [email or web address] Confirmed By:Erlin PLATA
== END 2019-04-30 17:55 | disposition home or self-care (01) | DRG 309 ==
LOC: 2NO 14:27
PROVIDERS: ADMIT Internal Medicine Cardiovascular Disease; ATTEND Internal Medicine Cardiovascular Disease
DX: I48.19 Other persistent atrial fibrillation (principal); I50.22 Chronic systolic (congestive) heart failure; I42.8 Other cardiomyopathies; E78.5 Hyperlipidemia, unspecified; I48.0 Paroxysmal atrial fibrillation; I11.0 Hypertensive heart disease with heart failure; D64.9 Anemia, unspecified; I45.81 Long QT syndrome; T44.7X5A Adverse effect of beta-adrenoreceptor antagonists, initial encounter; Z88.6 Allergy status to analgesic agent; Z79.01 Long term (current) use of anticoagulants; Z79.899 Other long term (current) drug therapy; Z88.8 Allergy status to other drugs, medicaments and biological substances; Z95.810 Presence of automatic (implantable) cardiac defibrillator
CPT/HCPCS: 93005; 93010

== ENCOUNTER 2021-08-02 10:23 | Observation (INO) | payer MEDICARE, BC ==
[2021-08-02 11:25] LABS: #Lymphocytes 1.3 thou/uL (1.20-3.40); #Monocytes 1.4 thou/uL (0.11-0.59); #Neutrophils 15.4 thou/uL (1.40-6.50); %Basophils 0.2 % (0.0-1.0); %Eosinophils 0.2 % (0.0-10.0); %Lymphocytes 7.3 % (21.0-51.0); %Monocytes 7.5 % (0.0-10.0); %Neutrophils 84.9 % (42.0-75.0); Hemoglobin 12.7 g/dL (12.0-16.0); Mean Corpuscular HGB CONC 32.8 g/dL (32.0-36.0); Mean Corpuscular Hemoglobin 33.7 pg (27.0-31.0); Platelet Count 172 thou/uL (130-400); RBC Distribution Width 11.3 % (11.5-14.5); Red Blood Cell (RBC) Count 3.78 mill/uL (4.20-5.40); White Blood Cell (WBC) Count 18.1 thou/uL (4.8-10.8)
[2021-08-02 11:51] LABS: ALT (SGPT) 27 U/L (8-55); AST (SGOT) 29 U/L (5-34); Albumin 3.5 g/dL (3.4-4.8); Alkaline Phosphatase 60 U/L (40-110); Anion Gap 18 mmol/L (10-20); BUN (Urea Nitrogen) 18 mg/dL (9.8-20.1); Bilirubin, Total 1.1 mg/dL (0.2-1.2); Calc. Creatinine Clearance 0 mL/min (70-130); Calcium 8.8 mg/dL (7.8-10.44); Carbon Dioxide 12 mmol/L (23-31); Chloride 105 mmol/L (98-107); Glucose 231 mg/dL (83-110); Potassium 4.9 mmol/L (3.5-5.1); Protein, Total 6.5 g/dL (5.8-8.1); Sodium 130 mmol/L (136-145)
[2021-08-02 14:15] LABS: Troponin I Less than 0.010 ng/mL (< 0.028)
[2021-08-02] MEDS ORDERED: Piperacillin/Tazobactam 3.375 GM VIAL ONE (16:06)
[2021-08-02 16:50] LABS: Actual Bicarbonate (HCO3v) 18 mEq/L (22-28); Analyzer IN Cardio ER; Base Excess -8.5 mEq/L (-2.0 to +3.0); Calcium, Ionized (venous) 1.07 mmol/L (1.16-1.32); Chloride (VBG) 100 mmol/L (98-106); Hemoglobin (Hb) 13.3 g/dL (11.7-16.1); Potassium (VBG) 4.53 mmol/L (3.70-5.30); Sodium 131.9 mmol/L (133-146); pH (venous) 7.27 (7.32-7.43)
[2021-08-02] MEDS ORDERED: Ondansetron PF 4 MG/2 ML Vial IVP PRN (16:53)
[2021-08-02] MEDS ORDERED: Ondansetron ODT 4 MG TAB PO PRN (16:53)
[2021-08-02 17:12] LABS: Acetaminophen Less than 6.0 mcg/mL (10.0-30.0); Alcohol Less than 10 mg/dL (Less than 10); Salicylate Less than 8.0 mg/dL (15.0-30.0)
[2021-08-02] MEDS ORDERED: Dextrose 5% in Water 1,000 ML IV PRN (17:15)
[2021-08-02] MEDS ORDERED: Dextrose 50% Abboject 50 ML SYRINGE SLOW IVP PRN (17:15)
[2021-08-02] MEDS ORDERED: HumaLOG 300 UNITS/3 ML VIAL SC PRN ×2 (17:15)
[2021-08-02 18:28] LABS: SARS-CoV-2 NAA Rapid Test Not Detected (NotDetected)
[2021-08-02] MEDS ORDERED: Morphine 4 MG/ML VIAL SLOW IVP PRN (18:35)
[2021-08-02] MEDS ORDERED: Nitroglycerin 0.4 MG TAB (25 Tab Bottle) SL PRN (18:41)
[2021-08-02 19:41] LABS: Lactic Acid 2.8 mmol/L (0.5-2.2)
[2021-08-02 21:53] VITALS: BMI 20.8
[2021-08-02] MEDS: Vit A,C & E/Lutein/Minerals Tablet PO SCH (22:05)
[2021-08-02] MEDS: Sacubitril 49 MG/Valsartan 51 MG TABLET PO SCH (22:05)
[2021-08-02] MEDS: Carvedilol 6.25 MG TAB PO SCH (22:05)
[2021-08-02] MEDS: Sotalol HCl 80 MG TAB PO SCH (22:06)
[2021-08-02] MEDS: Piperacillin/Tazobactam 3.375 GM in Sodium Chloride 0.9% 100 ML IVPB SCH (22:08)
[2021-08-02] MEDS: Lactated Ringer's 1,000 ML IV SCH (22:08)
[2021-08-03] MEDS: Lactated Ringer's 1,000 ML IV SCH ×2 (02:09→14:54)
[2021-08-03] MEDS: Piperacillin/Tazobactam 3.375 GM in Sodium Chloride 0.9% 100 ML IVPB SCH ×2 (05:05→14:16)
[2021-08-03 06:52] LABS: Mean Corpuscular Hemoglobin 33.7 pg (27.0-31.0); Mean Corpuscular Volume 99.3 fL (78.0-98.0); Mean Platelet Volume 7.7 fL (7.4-10.4); Platelet Count 163 thou/uL (130-400); RBC Distribution Width 11.1 % (11.5-14.5); Red Blood Cell (RBC) Count 3.27 mill/uL (4.20-5.40); White Blood Cell (WBC) Count 16.9 thou/uL (4.8-10.8)
[2021-08-03 07:06] LABS: ALT (SGPT) 54 U/L (8-55); AST (SGOT) 33 U/L (5-34); Albumin 3.4 g/dL (3.4-4.8); Alkaline Phosphatase 50 U/L (40-110); Anion Gap 14 mmol/L (10-20); BUN (Urea Nitrogen) 29 mg/dL (9.8-20.1); Bilirubin, Total 0.8 mg/dL (0.2-1.2); Calc. Creatinine Clearance 27 mL/min (70-130); Calcium 8.5 mg/dL (7.8-10.44); Carbon Dioxide 19 mmol/L (23-31); Chloride 103 mmol/L (98-107); Globulin 2.6 g/dL (2.4-3.5); Glucose 191 mg/dL (83-110); Sodium 132 mmol/L (136-145)
[2021-08-03 07:34] LABS: #Lymphocytes 1.6 thou/uL (1.20-3.40); #Monocytes 1.3 thou/uL (0.11-0.59); %Eosinophils 0.1 % (0.0-10.0); %Lymphocytes 9.3 % (21.0-51.0); %Monocytes 7.9 % (0.0-10.0); %Neutrophils 82.7 % (42.0-75.0); Band 3 % (5-11); Lymphocytes 11 % (21-51); MDiff Complete? YES; Monocytes 7 % (0-10); Neutrophil 79 % (42-75); Platelet Morphology Comment Appears Adequate; Polychromasia SLIGHT = 2-3 cells (100X) (0-2/hpf)
[2021-08-03] MEDS ORDERED: Ferrous Sulfate 325 MG TAB PO SCH (08:00)
[2021-08-03] MEDS ORDERED: Potassium Chloride 10 MEQ TAB PO SCH (09:00)
[2021-08-03] MEDS ORDERED: Calcium Carbonate 600 MG + Vit D TAB PO SCH (09:00)
[2021-08-03] MEDS ORDERED: Loratadine 10 MG TAB PO SCH (09:00)
[2021-08-03] MEDS ORDERED: Fish Oil 1,000 MG CAP PO SCH (09:00)
[2021-08-03] MEDS ORDERED: Empagliflozin 10 MG TAB PO SCH (09:00)
[2021-08-03] MEDS ORDERED: Spironolactone 25 MG TAB PO SCH (09:00)
[2021-08-03] MEDS ORDERED: Atorvastatin Calcium 40 MG TAB PO SCH (09:00)
[2021-08-03] MEDS: Carvedilol 6.25 MG TAB PO SCH (09:28)
[2021-08-03] MEDS: Sacubitril 49 MG/Valsartan 51 MG TABLET PO SCH (09:29)
[2021-08-03] MEDS: Sotalol HCl 80 MG TAB PO SCH (09:29)
[2021-08-03] MEDS: Vit A,C & E/Lutein/Minerals Tablet PO SCH (09:33)
[2021-08-03 20:33] VITALS: BP 118/67
[2021-08-03 20:34] VITALS: TEMP 98.9
== END 2021-08-03 21:19 | disposition home or self-care (01) ==
LOC: ERS 10:23 → ERHOLD 17:03 → SURG A 19:25
PROVIDERS: ADMIT Family Medicine; ATTEND Family Medicine
DX: R07.2 Precordial pain (principal); N17.9 Acute kidney failure, unspecified; I48.91 Unspecified atrial fibrillation; E11.9 Type 2 diabetes mellitus without complications; I10 Essential (primary) hypertension; E78.5 Hyperlipidemia, unspecified; Z20.822 Contact with and (suspected) exposure to COVID-19; Z79.01 Long term (current) use of anticoagulants; Z79.899 Other long term (current) drug therapy; Z95.0 Presence of cardiac pacemaker; Z88.5 Allergy status to narcotic agent; Z88.8 Allergy status to other drugs, medicaments and biological substances; Z66 Do not resuscitate
CPT/HCPCS: 71045; 76705; 78227; 80053 ×2; 80307; 82010; 82805; 82962 ×2; 83605; 83690; 84484 ×2; 85025 ×2; 85379; 87040; 93005; 96366 ×2; A9537; G0378 ×3; U0002; 36415; 36416; J1815; J2543; J3490; J7120

== ENCOUNTER 2021-08-14 17:40 | Inpatient (IN) | payer MEDICARE, BC ==
[2021-08-14 19:07] LABS: #Eosinphils 0.1 thou/uL (0.0-0.7); #Monocytes 0.7 thou/uL (0.11-0.59); #Neutrophils 6.9 thou/uL (1.40-6.50); %Basophils 0.5 % (0.0-1.0); %Eosinophils 0.8 % (0.0-10.0); %Lymphocytes 11.2 % (21.0-51.0); %Neutrophils 79.5 % (42.0-75.0); Hemoglobin 10.7 g/dL (12.0-16.0); Mean Corpuscular HGB CONC 32.5 g/dL (32.0-36.0); Mean Corpuscular Hemoglobin 32.7 pg (27.0-31.0); Mean Platelet Volume 7.7 fL (7.4-10.4); Platelet Count 237 thou/uL (130-400); RBC Distribution Width 11.8 % (11.5-14.5); Red Blood Cell (RBC) Count 3.29 mill/uL (4.20-5.40); White Blood Cell (WBC) Count 8.6 thou/uL (4.8-10.8)
[2021-08-14 19:28] LABS: AST (SGOT) 14 U/L (5-34); Albumin 3.5 g/dL (3.4-4.8); Alkaline Phosphatase 56 U/L (40-110); Anion Gap 12 mmol/L (10-20); BUN (Urea Nitrogen) 16 mg/dL (9.8-20.1); Bilirubin, Total 0.8 mg/dL (0.2-1.2); Calc. Creatinine Clearance 0 mL/min (70-130); Calcium 8.3 mg/dL (7.8-10.44); Carbon Dioxide 24 mmol/L (23-31); Chloride 99 mmol/L (98-107); Globulin 2.4 g/dL (2.4-3.5); Glucose 145 mg/dL (83-110); Potassium 4.2 mmol/L (3.5-5.1); Protein, Total 5.9 g/dL (5.8-8.1); Sodium 131 mmol/L (136-145)
[2021-08-14 19:29] LABS: ALT (SGPT) 15 U/L (8-55)
[2021-08-14] MEDS ORDERED: Carvedilol 6.25 MG TAB PO SCH ×2 (21:30→23:15)
[2021-08-14] MEDS ORDERED: Sotalol HCl 80 MG TAB PO SCH ×2 (21:30→23:15)
[2021-08-14] MEDS ORDERED: Apixaban 2.5 MG TAB PO SCH ×2 (21:30→23:15)
[2021-08-14 22:24] VITALS: BMI 22.1
[2021-08-14] MEDS ORDERED: Dextrose 5% in Water 1,000 ML IV PRN (23:29)
[2021-08-14] MEDS ORDERED: Dextrose 50% Abboject 50 ML SYRINGE SLOW IVP PRN (23:29)
[2021-08-14] MEDS ORDERED: Acetaminophen 325 MG TAB PO PRN (23:36)
[2021-08-14] MEDS ORDERED: HumaLOG 300 UNITS/3 ML VIAL SC PRN (23:39)
[2021-08-14] MEDS ORDERED: Furosemide 20 MG/2 ML VIAL SLOW IVP SCH (23:45)
[2021-08-15 05:43] LABS: #Eosinphils 0.1 thou/uL (0.0-0.7); #Lymphocytes 1.1 thou/uL (1.20-3.40); #Monocytes 0.6 thou/uL (0.11-0.59); #Neutrophils 6.5 thou/uL (1.40-6.50); %Basophils 0.3 % (0.0-1.0); %Eosinophils 1.4 % (0.0-10.0); %Monocytes 7.6 % (0.0-10.0); %Neutrophils 77.8 % (42.0-75.0); Hemoglobin 9.8 g/dL (12.0-16.0); Mean Corpuscular HGB CONC 34.2 g/dL (32.0-36.0); Mean Corpuscular Hemoglobin 34.3 pg (27.0-31.0); Platelet Count 200 thou/uL (130-400); RBC Distribution Width 11.7 % (11.5-14.5); Red Blood Cell (RBC) Count 2.86 mill/uL (4.20-5.40); White Blood Cell (WBC) Count 8.3 thou/uL (4.8-10.8)
[2021-08-15 06:07] LABS: Anion Gap 12 mmol/L (10-20); BUN (Urea Nitrogen) 15 mg/dL (9.8-20.1); Calc. Creatinine Clearance 41 mL/min (70-130); Calcium 8.2 mg/dL (7.8-10.44); Carbon Dioxide 23 mmol/L (23-31); Chloride 101 mmol/L (98-107); Glucose 139 mg/dL (83-110); Iron 19 ug/dL (50-170); Iron Binding Capacity, Total 180 mcg/dL (265-497); Potassium 3.9 mmol/L (3.5-5.1); Sodium 132 mmol/L (136-145)
[2021-08-15 06:30] LABS: Ferritin 425.71 ng/mL (10-291)
[2021-08-15] MEDS ORDERED: Furosemide 20 MG/2 ML VIAL SLOW IVP SCH (08:45)
[2021-08-15] MEDS: Atorvastatin Calcium 40 MG TAB PO SCH (08:58)
[2021-08-15] MEDS: Calcium Carbonate 600 MG + Vit D TAB PO SCH (08:59)
[2021-08-15] MEDS: Apixaban 2.5 MG TAB PO SCH ×2 (08:59→20:27)
[2021-08-15] MEDS: Carvedilol 6.25 MG TAB PO SCH ×2 (08:59→21:20)
[2021-08-15] MEDS: Potassium Chloride 10 MEQ TAB PO SCH (08:59)
[2021-08-15] MEDS: Empagliflozin 10 MG TAB PO SCH (09:00)
[2021-08-15] MEDS ORDERED: Spironolactone 25 MG TAB PO SCH (09:00)
[2021-08-15] MEDS: Ferrous Sulfate 325 MG TAB PO SCH (09:00)
[2021-08-15] MEDS: Sacubitril 49 MG/Valsartan 51 MG TABLET PO SCH ×2 (09:00→20:27)
[2021-08-15] MEDS: Sotalol HCl 80 MG TAB PO SCH ×2 (09:00→21:20)
[2021-08-15] MEDS ORDERED: Vit A,C & E/Lutein/Minerals Tablet PO SCH (09:00)
[2021-08-15] MEDS ORDERED: Folic Acid/Vit B Comp W-C PO SCH (09:00)
[2021-08-15 17:43] LABS: SARS-CoV-2 PCR by NAA Not Detected (NotDetected)
[2021-08-16 04:57] LABS: #Eosinphils 0.1 thou/uL (0.0-0.7); #Lymphocytes 1.2 thou/uL (1.20-3.40); #Monocytes 0.7 thou/uL (0.11-0.59); %Basophils 0.4 % (0.0-1.0); %Eosinophils 0.8 % (0.0-10.0); %Lymphocytes 12.9 % (21.0-51.0); %Monocytes 7.8 % (0.0-10.0); Mean Corpuscular HGB CONC 31.6 g/dL (32.0-36.0); Mean Corpuscular Hemoglobin 31.7 pg (27.0-31.0); Mean Platelet Volume 7.4 fL (7.4-10.4); Platelet Count 234 thou/uL (130-400); RBC Distribution Width 11.6 % (11.5-14.5); Red Blood Cell (RBC) Count 3.15 mill/uL (4.20-5.40); White Blood Cell (WBC) Count 8.9 thou/uL (4.8-10.8)
[2021-08-16 05:14] LABS: Anion Gap 12 mmol/L (10-20); BUN (Urea Nitrogen) 17 mg/dL (9.8-20.1); Calc. Creatinine Clearance 37 mL/min (70-130); Calcium 8.4 mg/dL (7.8-10.44); Carbon Dioxide 22 mmol/L (23-31); Chloride 102 mmol/L (98-107); Glucose 129 mg/dL (83-110); Potassium 3.5 mmol/L (3.5-5.1); Sodium 132 mmol/L (136-145)
[2021-08-16] MEDS ORDERED: ceFAZolin 2 GM/Dextrose 50 ML 2 GM in Premix Bag 1 BAG IVPB SCH (11:30)
[2021-08-16] MEDS ORDERED: Xylocaine 1% w/ Epi 1:100K 10 ML VIAL ONE (12:09)
[2021-08-16] MEDS ORDERED: Fentanyl 100 MCG/2 ML VIAL ONE (12:16)
[2021-08-16] MEDS ORDERED: Phenylephrine 10 MG/ML VIAL ONE (12:16)
[2021-08-16] MEDS ORDERED: ceFAZolin 2 GM/Dextrose 50 ML IVPB ONE (12:17)
[2021-08-16] MEDS ORDERED: Famotidine/PF 20 mg/2ml Vial ONE (12:17)
[2021-08-16] MEDS ORDERED: ePHEDrine Sulfate 50 MG/10 ML VIAL ONE (12:23)
[2021-08-16] MEDS ORDERED: SUGAMMADEX SODIUM 200 MG/2 ML VIAL ONE (12:23)
[2021-08-16] MEDS ORDERED: Lidocaine 1% PF 5 ML VIAL ONE (12:45)
[2021-08-16] MEDS ORDERED: Dexamethasone 20 MG/5 ML VIAL ONE (12:45)
[2021-08-16] MEDS ORDERED: PHENYLEPHRINE-NS 100 MCG/ML 10 ML SYRINGE ONE (12:45)
[2021-08-16] MEDS ORDERED: Ondansetron PF 4 MG/2 ML Vial ONE (12:45)
[2021-08-16] MEDS ORDERED: Metoclopramide HCl 10 MG/2 ML VIAL ONE (12:45)
[2021-08-16] MEDS ORDERED: Rocuronium Bromide 10 MG/ML (10ML VIAL) ONE (12:45)
[2021-08-16] MEDS ORDERED: Glycopyrrolate 0.2 MG/ML 5 ML SYRINGE ONE (12:45)
[2021-08-16] MEDS ORDERED: Ondansetron HCl/PF 4 MG/2 ML Vial IVP PRN (13:25)
[2021-08-16] MEDS ORDERED: Fentanyl 100 MCG/2 ML VIAL SLOW IVP PRN (15:20)
[2021-08-16] MEDS: Apixaban 2.5 MG TAB PO SCH (15:24)
[2021-08-16] MEDS: Calcium Carbonate 600 MG + Vit D TAB PO SCH (15:24)
[2021-08-16] MEDS: Ferrous Sulfate 325 MG TAB PO SCH (15:24)
[2021-08-16] MEDS: Atorvastatin Calcium 40 MG TAB PO SCH (15:24)
[2021-08-16] MEDS: Carvedilol 6.25 MG TAB PO SCH ×2 (15:25→20:49)
[2021-08-16] MEDS: Furosemide 20 MG/2 ML VIAL SLOW IVP SCH ×2 (15:25→20:50)
[2021-08-16] MEDS: Potassium Chloride 10 MEQ TAB PO SCH (15:25)
[2021-08-16] MEDS: Sacubitril 49 MG/Valsartan 51 MG TABLET PO SCH ×2 (15:25→20:48)
[2021-08-16] MEDS: Sotalol HCl 80 MG TAB PO SCH ×2 (15:26→20:50)
[2021-08-17 05:19] LABS: #Lymphocytes 0.7 thou/uL (1.20-3.40); #Monocytes 0.5 thou/uL (0.11-0.59); #Neutrophils 9.7 thou/uL (1.40-6.50); %Basophils 0.1 % (0.0-1.0); %Eosinophils 0.1 % (0.0-10.0); %Lymphocytes 6.1 % (21.0-51.0); %Monocytes 4.7 % (0.0-10.0); %Neutrophils 89.1 % (42.0-75.0); Hemoglobin 9.9 g/dL (12.0-16.0); Mean Corpuscular HGB CONC 32.9 g/dL (32.0-36.0); Mean Platelet Volume 7.7 fL (7.4-10.4); Platelet Count 238 thou/uL (130-400); RBC Distribution Width 11.7 % (11.5-14.5); Red Blood Cell (RBC) Count 2.98 mill/uL (4.20-5.40); White Blood Cell (WBC) Count 10.9 thou/uL (4.8-10.8)
[2021-08-17 05:44] LABS: Anion Gap 14 mmol/L (10-20); BUN (Urea Nitrogen) 20 mg/dL (9.8-20.1); Calc. Creatinine Clearance 35 mL/min (70-130); Calcium 8.2 mg/dL (7.8-10.44); Carbon Dioxide 22 mmol/L (23-31); Chloride 101 mmol/L (98-107); Glucose 164 mg/dL (83-110); Potassium 4.2 mmol/L (3.5-5.1); Sodium 133 mmol/L (136-145)
[2021-08-17] MEDS: Furosemide 20 MG/2 ML VIAL SLOW IVP SCH ×2 (06:12→16:18)
[2021-08-17 07:50] LABS: Hemoglobin A1c 6.5 % (4.0-6.0)
[2021-08-17] MEDS: Empagliflozin 10 MG TAB PO SCH (10:17)
[2021-08-17] MEDS: Polyethylene Glycol 3350 17 GM Packet PO SCH (10:17)
[2021-08-17] MEDS: Sacubitril 49 MG/Valsartan 51 MG TABLET PO SCH ×2 (10:18→22:18)
[2021-08-17] MEDS: Atorvastatin Calcium 40 MG TAB PO SCH ×2 (10:18→22:17)
[2021-08-17] MEDS: Ferrous Sulfate 325 MG TAB PO SCH (10:18)
[2021-08-17] MEDS: Carvedilol 6.25 MG TAB PO SCH ×2 (10:18→22:17)
[2021-08-17] MEDS: Potassium Chloride 10 MEQ TAB PO SCH (10:19)
[2021-08-17] MEDS: Sotalol HCl 80 MG TAB PO SCH ×2 (10:19→22:17)
[2021-08-17] MEDS: Calcium Carbonate 600 MG + Vit D TAB PO SCH (10:19)
[2021-08-17] MEDS: HumaLOG 300 UNITS/3 ML VIAL SC PRN (12:28)
[2021-08-17] MEDS: Apixaban 2.5 MG TAB PO SCH (22:16)
[2021-08-18 05:35] LABS: #Lymphocytes 1.8 thou/uL (1.20-3.40); #Monocytes 0.7 thou/uL (0.11-0.59); #Neutrophils 7.5 thou/uL (1.40-6.50); %Basophils 0.2 % (0.0-1.0); %Eosinophils 0.3 % (0.0-10.0); %Lymphocytes 17.5 % (21.0-51.0); %Neutrophils 75.1 % (42.0-75.0); Hemoglobin 10.3 g/dL (12.0-16.0); Mean Corpuscular HGB CONC 32.2 g/dL (32.0-36.0); Mean Corpuscular Hemoglobin 32.1 pg (27.0-31.0); Mean Corpuscular Volume 99.6 fL (78.0-98.0); Mean Platelet Volume 7.8 fL (7.4-10.4); Platelet Count 269 thou/uL (130-400); RBC Distribution Width 11.7 % (11.5-14.5)
[2021-08-18 05:56] LABS: Anion Gap 12 mmol/L (10-20); BUN (Urea Nitrogen) 22 mg/dL (9.8-20.1); Calc. Creatinine Clearance 36 mL/min (70-130); Calcium 8.3 mg/dL (7.8-10.44); Carbon Dioxide 25 mmol/L (23-31); Chloride 99 mmol/L (98-107); Glucose 113 mg/dL (83-110); Potassium 3.7 mmol/L (3.5-5.1); Sodium 132 mmol/L (136-145)
[2021-08-18] MEDS: Furosemide 20 MG/2 ML VIAL SLOW IVP SCH (06:39)
[2021-08-18] MEDS ORDERED: PROPOFOL 20 ML ONE (11:44)
[2021-08-18] MEDS ORDERED: Lidocaine 1% PF 5 ML VIAL ONE (12:45)
[2021-08-18] MEDS: Sacubitril 49 MG/Valsartan 51 MG TABLET PO SCH ×2 (14:14→20:39)
[2021-08-18] MEDS: Ferrous Sulfate 325 MG TAB PO SCH (14:14)
[2021-08-18] MEDS: Calcium Carbonate 600 MG + Vit D TAB PO SCH (14:15)
[2021-08-18] MEDS: Sotalol HCl 80 MG TAB PO SCH ×2 (14:15→20:40)
[2021-08-18] MEDS: Carvedilol 6.25 MG TAB PO SCH ×2 (14:16→20:58)
[2021-08-18] MEDS: Apixaban 2.5 MG TAB PO SCH ×2 (14:16→20:38)
[2021-08-18] MEDS: Polyethylene Glycol 3350 17 GM Packet PO SCH (14:17)
[2021-08-18] MEDS: Potassium Chloride 10 MEQ TAB PO SCH (14:17)
[2021-08-18] MEDS: Atorvastatin Calcium 40 MG TAB PO SCH (20:38)
[2021-08-19 04:32] LABS: #Basophils 0.1 thou/uL (0.0-0.2); #Lymphocytes 1.5 thou/uL (1.20-3.40); #Monocytes 0.6 thou/uL (0.11-0.59); #Neutrophils 5.8 thou/uL (1.40-6.50); %Basophils 0.8 % (0.0-1.0); %Eosinophils 0.5 % (0.0-10.0); %Lymphocytes 18.8 % (21.0-51.0); %Monocytes 7.5 % (0.0-10.0); %Neutrophils 72.4 % (42.0-75.0); Hemoglobin 10.8 g/dL (12.0-16.0); Mean Corpuscular HGB CONC 32.9 g/dL (32.0-36.0); Mean Corpuscular Hemoglobin 32.9 pg (27.0-31.0); Mean Corpuscular Volume 99.9 fL (78.0-98.0); Mean Platelet Volume 7.7 fL (7.4-10.4); Platelet Count 273 thou/uL (130-400); RBC Distribution Width 11.6 % (11.5-14.5); Red Blood Cell (RBC) Count 3.29 mill/uL (4.20-5.40); White Blood Cell (WBC) Count 7.9 thou/uL (4.8-10.8)
[2021-08-19 04:55] LABS: Anion Gap 12 mmol/L (10-20); BUN (Urea Nitrogen) 18 mg/dL (9.8-20.1); Calc. Creatinine Clearance 42 mL/min (70-130); Calcium 8.4 mg/dL (7.8-10.44); Carbon Dioxide 24 mmol/L (23-31); Chloride 100 mmol/L (98-107); Glucose 100 mg/dL (83-110); Potassium 3.7 mmol/L (3.5-5.1); Sodium 132 mmol/L (136-145)
[2021-08-19] MEDS: Sacubitril 49 MG/Valsartan 51 MG TABLET PO SCH (09:15)
[2021-08-19] MEDS: Sotalol HCl 80 MG TAB PO SCH (09:15)
[2021-08-19] MEDS: Potassium Chloride 10 MEQ TAB PO SCH (09:16)
[2021-08-19] MEDS: Ferrous Sulfate 325 MG TAB PO SCH (09:16)
[2021-08-19] MEDS: Calcium Carbonate 600 MG + Vit D TAB PO SCH (09:16)
[2021-08-19] MEDS: Apixaban 2.5 MG TAB PO SCH (09:16)
[2021-08-19] MEDS: Polyethylene Glycol 3350 17 GM Packet PO SCH ×2 (09:16→09:21)
[2021-08-19] MEDS: Empagliflozin 10 MG TAB PO SCH (09:16)
[2021-08-19] MEDS: Carvedilol 6.25 MG TAB PO SCH (09:16)
[2021-08-19] MEDS: HumaLOG 300 UNITS/3 ML VIAL SC PRN (12:13)
[2021-08-19 15:58] VITALS: BP 115/55; TEMP 98.4
== END 2021-08-19 15:45 | disposition home or self-care (01) | DRG 270 ==
LOC: ERS 17:40 → 2NO 20:29 → ERS 21:45 → OBSVTOIN 08-16 13:21 → ERHOLD 08-16 13:42 → 2NO 08-16 13:43
PROVIDERS: ADMIT Student in an Organized Health Care Education/Training Program; ATTEND Student in an Organized Health Care Education/Training Program
PROC: 0W9D0ZZ Drainage of Pericardial Cavity, Open Approach (ICD-10-PCS; principal; 2021-08-16)
PROC: 02BN0ZX Excision of Pericardium, Open Approach, Diagnostic (ICD-10-PCS; 2021-08-16)
PROC: B24BZZ4 Ultrasonography of Heart with Aorta, Transesophageal (ICD-10-PCS; 2021-08-18)
PROC: 5A2204Z Restoration of Cardiac Rhythm, Single (ICD-10-PCS; 2021-08-18)
DX: I11.0 Hypertensive heart disease with heart failure (principal); I50.23 Acute on chronic systolic (congestive) heart failure; I31.3 Pericardial effusion (noninflammatory); E46 Unspecified protein-calorie malnutrition; I48.92 Unspecified atrial flutter; I47.2 Ventricular tachycardia; I48.19 Other persistent atrial fibrillation; E87.1 Hypo-osmolality and hyponatremia; I42.8 Other cardiomyopathies; Z66 Do not resuscitate; Z20.822 Contact with and (suspected) exposure to COVID-19; R78.5 Finding of other psychotropic drug in blood; E11.9 Type 2 diabetes mellitus without complications; E78.5 Hyperlipidemia, unspecified; D53.9 Nutritional anemia, unspecified; I25.10 Atherosclerotic heart disease of native coronary artery without angina pectoris; I08.1 Rheumatic disorders of both mitral and tricuspid valves; Z95.810 Presence of automatic (implantable) cardiac defibrillator; Z88.5 Allergy status to narcotic agent; Z88.8 Allergy status to other drugs, medicaments and biological substances; Z79.899 Other long term (current) drug therapy; Z90.49 Acquired absence of other specified parts of digestive tract; Z90.13 Acquired absence of bilateral breasts and nipples; Z79.01 Long term (current) use of anticoagulants; Z79.84 Long term (current) use of oral hypoglycemic drugs
CPT/HCPCS: 36415; 36416; 71045; 80048; 80053; 82607; 82728; 82746; 83036; 83540; 83550; 83605; 83880; 84443; 84484; 85025; 88112; 88305; 92960; 93005; 93010; 93306; 93312; 96374; 96375; G0378; J0690; J1100; J1815; J1940; J2370; J2405; J2704; J2765; J3010; S0028; U0003; U0005

== ENCOUNTER 2021-09-23 12:22 | Outpatient (CLI) | payer MEDICARE, BC ==
[2021-09-23 13:41] LABS: Hemoglobin 12.5 g/dL (12.0-15.5); Mean Corpuscular HGB CONC 32.1 g/dL (32.0-36.0); Mean Corpuscular Hemoglobin 30.8 pg (27.0-33.0); Mean Corpuscular Volume 95.8 fl (81.6-98.3); Mean Platelet Volume 10.5 fl (7.4-10.4); Platelet Count 221 10x3/uL (150-450); Red Blood Cell (RBC) Count 4.06 10x6/uL (3.90-5.03); White Blood Cell (WBC) Count 9.1 10x3/uL (3.5-10.5)
[2021-09-23 13:53] LABS: PTT 28.1 sec (22.0-33.0); Prothrombin Time 11.2 sec (9.5-12.1)
[2021-09-23 14:01] LABS: Anion Gap 13 mmol/L (10-20); BUN (Urea Nitrogen) 17 mg/dL (9.8-20.1); Calc. Creatinine Clearance 0 mL/min (70-130); Calcium 9.1 mg/dL (7.8-10.44); Carbon Dioxide 25 mmol/L (23-31); Chloride 102 mmol/L (98-107); Glucose 203 mg/dL (83-110); Potassium 4.1 mmol/L (3.5-5.1); Sodium 136 mmol/L (136-145)
[2021-09-24 00:06] LABS: SARS-CoV-2 PCR by NAA Not Detected (NotDetected)
== END 2021-09-23 12:23 | disposition home or self-care (01) ==
LOC: LABBT 12:22
PROVIDERS: ATTEND Internal Medicine Cardiovascular Disease
DX: Z01.812 Encounter for preprocedural laboratory examination (principal); I44.7 Left bundle-branch block, unspecified; I48.19 Other persistent atrial fibrillation; I50.9 Heart failure, unspecified; Z20.822 Contact with and (suspected) exposure to COVID-19
CPT/HCPCS: 80048; 85027; 85610; 85730; U0003; U0005

== ENCOUNTER 2022-01-12 11:14 | Outpatient (CLI) | payer MEDICARE, BC | END 2022-01-12 11:15 | disposition home or self-care (01) | LOC: LABBT 11:14 | PROVIDERS: ATTEND Internal Medicine Gastroenterology | DX: R63.4 Abnormal weight loss (principal); K92.2 Gastrointestinal hemorrhage, unspecified; Z20.822 Contact with and (suspected) exposure to COVID-19 | CPT/HCPCS: U0003; U0005 ==

== ENCOUNTER 2022-01-17 06:46 | Day surgery (SDC) | payer MEDICARE, BC ==
[2022-01-16 11:35] VITALS: BMI 19.3
[2022-01-17] MEDS ORDERED: Ketamine 50 MG/ML (10ML VIAL) ONE (09:06)
[2022-01-17] MEDS ORDERED: PROPOFOL 200 MG/20 ML VIAL ONE (09:10)
== END 2022-01-17 11:06 | disposition home or self-care (01) ==
LOC: SDC 06:46
PROVIDERS: ATTEND Internal Medicine Gastroenterology
PROC: 0DBK8ZX Excision of Ascending Colon, Via Natural or Artificial Opening Endoscopic, Diagnostic (ICD-10-PCS; principal; 2022-01-17)
PROC: 0DBL8ZX Excision of Transverse Colon, Via Natural or Artificial Opening Endoscopic, Diagnostic (ICD-10-PCS; 2022-01-17)
PROC: 0DBH8ZX Excision of Cecum, Via Natural or Artificial Opening Endoscopic, Diagnostic (ICD-10-PCS; 2022-01-17)
PROC: 0DBL8ZX Excision of Transverse Colon, Via Natural or Artificial Opening Endoscopic, Diagnostic (ICD-10-PCS; 2022-01-17)
DX: D12.0 Benign neoplasm of cecum (principal); D12.2 Benign neoplasm of ascending colon; D12.3 Benign neoplasm of transverse colon; K57.30 Diverticulosis of large intestine without perforation or abscess without bleeding; K64.9 Unspecified hemorrhoids; Q43.8 Other specified congenital malformations of intestine; E11.9 Type 2 diabetes mellitus without complications; I48.91 Unspecified atrial fibrillation; E78.5 Hyperlipidemia, unspecified; I10 Essential (primary) hypertension; J30.9 Allergic rhinitis, unspecified; M06.9 Rheumatoid arthritis, unspecified; R63.4 Abnormal weight loss; Z68.1 Body mass index [BMI] 19.9 or less, adult; Z85.3 Personal history of malignant neoplasm of breast; Z79.01 Long term (current) use of anticoagulants; Z79.84 Long term (current) use of oral hypoglycemic drugs; Z79.899 Other long term (current) drug therapy; Z88.5 Allergy status to narcotic agent; Z88.8 Allergy status to other drugs, medicaments and biological substances; Z95.810 Presence of automatic (implantable) cardiac defibrillator
CPT/HCPCS: 88305; J2704

== ENCOUNTER 2022-02-23 09:51 | Outpatient (CLI) | payer MEDICARE, BC | END 2022-02-23 09:52 | disposition home or self-care (01) | LOC: NM 09:51 | PROVIDERS: ATTEND Internal Medicine Gastroenterology | DX: R93.89 Abnormal findings on diagnostic imaging of other specified body structures (principal) | CPT/HCPCS: 78306; A9503 ==